=== PATIENT | female | born 1985 | race Caucasian/White ===

== ENCOUNTER 2016-12-19 15:19 | Emergency (ER) | payer OTHER ==
[~2016-12-19] VITALS: Ht 157.5 cm; Wt 68.1 kg
[2016-12-19 16:11] LABS: HEMATOCRIT 42.3 % (36.0-46.0); MCH 31.4 PG (29.0-34.0); MCHC 32.9 G/DL (30.0-36.0); MCV 95.7 FL (83-99); RBC DIS.WIDTH-CV 13.4 % (11.8-14.6); RBC DIS.WIDTH-SD 47.8 % (39-53); RED BLOOD COUNT 4.42 M/uL (3.80-5.20); WHITE BLOOD COUNT 9.8 K/uL (4.1-10.2)
[2016-12-19 16:19] LABS: CHLORIDE 108 mEq/L (99-109); POTASSIUM 4.4 mEq/L (3.7-5.4); SODIUM 140 mEq/L (136-147)
[2016-12-19 16:21] LABS: GLUCOSE 99 mg/dL (70-99)
[2016-12-19 16:22] LABS: ANION GAP 10 MEQ/L (2-14)
[2016-12-19 16:25] LABS: GFR ESTIMATE (CALCULATED) > 59 mL/min/
[2016-12-19 16:26] LABS: UREA NITROGEN (BUN) 12 mg/dL (9-23)
[2016-12-19 16:33] LABS: QUANTITATIVE HCG < 4.0 MIU/ML
[2016-12-19] MEDS ORDERED: NAPROSYN500 MG PO (17:20)
[2016-12-19 17:36] VITALS: BP 132/78
[2016-12-19 17:51] LABS: MEAN PLAT.VOLUME 11.3 uM^3 (9.5-12.4); PLAT.SUFFICIENCY ADEQUATE; PLATELET COUNT 296 K/uL (156-360)
== END 2016-12-19 17:37 | disposition home or self-care (01) ==
LOC: EME 15:19
PROVIDERS: Emergency Medicine
DX: S16.1XXA Strain of muscle, fascia and tendon at neck level, initial encounter (principal); V49.49XA Driver injured in collision with other motor vehicles in traffic accident, initial encounter; F17.200 Nicotine dependence, unspecified, uncomplicated
CPT/HCPCS: 72125; 80048; 84702; 85027; 99281; 99284

== ENCOUNTER 2016-12-21 23:38 | Emergency (ER) | payer OTHER ==
[~2016-12-21] VITALS: Ht 157.5 cm; Wt 70.7 kg
[~2016-12-21 23:38] MED LIST: NAPROSYN500 MG PO
[2016-12-22] MEDS ORDERED: VALIUM2 MG PO (02:05)
[2016-12-22] MEDS ORDERED: MEDROL DOSEPAK4 MG PO (02:05)
[2016-12-22 02:36] VITALS: BP 129/85
== END 2016-12-22 02:38 | disposition home or self-care (01) ==
LOC: EME 23:38
DX: M54.2 Cervicalgia (principal); M25.511 Pain in right shoulder; Z72.0 Tobacco use
CPT/HCPCS: 73030; 99281; 99283; J7512